=== PATIENT | female | born 1995 | race Caucasian/White ===

== ENCOUNTER 2020-05-06 11:10 | Day surgery (SDC) | payer OTHER ==
[2020-05-01 21:17] LABS: BHCG - Serum Negative (NEGATIVE); Pregs Control Background? CLEAR/WHITE (CLR/WHITE); Pregs Control Bar Appear? YES (CONTROL BAR)
[2020-05-01 21:18] LABS: Hemoglobin 12.7 g/dL (12.0-15.5); Mean Corpuscular HGB CONC 32.8 g/dL (32.0-36.0); Mean Corpuscular Hemoglobin 30.5 pg (27.0-33.0); Mean Platelet Volume 10.1 fl (7.4-10.4); Platelet Count 346 10x3/uL (150-450); RBC Distribution Width 11.8 % (11.5-14.5); Red Blood Cell (RBC) Count 4.16 10x6/uL (3.90-5.03); White Blood Cell (WBC) Count 10.2 10x3/uL (3.5-10.5)
[2020-05-02 15:52] LABS: SARS-CoV-2 PCR by NAA Not Detected (NotDetected)
[2020-05-05 13:39] VITALS: BMI 29.8
[2020-05-06] MEDS ORDERED: Famotidine/PF 20 mg/2ml Vial ONE (11:32)
[2020-05-06] MEDS ORDERED: Gabapentin 300 MG CAP ONE (11:32)
[2020-05-06] MEDS ORDERED: Lidocaine 1% MPF 2 ML VIAL ONE (11:32)
[2020-05-06] MEDS ORDERED: CeleCOXIB 100 MG CAP ONE (11:32)
[2020-05-06] MEDS ORDERED: Lidocaine 2% Jelly 5 ML TUBE ONE (13:08)
[2020-05-06] MEDS ORDERED: Midazolam HCl 2 mg/2 ml Vial ONE (13:08)
[2020-05-06] MEDS ORDERED: Fentanyl 100 MCG/2 ML VIAL ONE (13:11)
[2020-05-06] MEDS ORDERED: Lidocaine 1% PF 5 ML VIAL ONE (13:11)
[2020-05-06] MEDS ORDERED: Rocuronium Bromide 10 MG/ML (10ML VIAL) ONE (13:11)
[2020-05-06] MEDS ORDERED: Bupivacaine PF 0.5% 30 ML VIAL ONE (13:11)
[2020-05-06] MEDS ORDERED: PROPOFOL 20 ML ONE (13:11)
[2020-05-06] MEDS ORDERED: Dexamethasone 20 MG/5 ML VIAL ONE (13:50)
[2020-05-06] MEDS ORDERED: Glycopyrrolate 0.2 MG/ML 5 ML SYRINGE ONE (13:53)
[2020-05-06] MEDS ORDERED: Bupivacaine/Epinephrine 0.25% 30 ML VIAL ONE (14:25)
[2020-05-06] MEDS ORDERED: Ondansetron PF 4 MG/2 ML Vial ONE (14:30)
[2020-05-06] MEDS ORDERED: Ketorolac Tromethamine 30 MG/ML VIAL ONE (14:31)
== END 2020-05-06 18:00 | disposition home or self-care (01) ==
LOC: CSHSDC 11:10
PROVIDERS: ATTEND Obstetrics & Gynecology
PROC: 0WBH4ZZ Excision of Retroperitoneum, Percutaneous Endoscopic Approach (ICD-10-PCS; principal; 2020-05-06)
DX: N80.3 Endometriosis of pelvic peritoneum (principal); G89.29 Other chronic pain; R10.2 Pelvic and perineal pain; Z79.899 Other long term (current) drug therapy; Z20.822 Contact with and (suspected) exposure to COVID-19
CPT/HCPCS: 84703; 85027; 86850; 86900; 86901; 87635; 88305; J0690; J1100; J1885; J2250; J2405; J2704; J3010; S0020; S0028; U0003; U0005